=== PATIENT | female | born 2000 | race Caucasian/White ===

== ENCOUNTER 2019-05-09 13:04 | Emergency (ER) | payer BC ==
[~2019-05-09] VITALS: Ht 165.1 cm; Wt 50.3 kg
[2019-05-09 13:16] VITALS: BP 128/87
== END 2019-05-09 14:28 | disposition home or self-care (01) ==
LOC: ER 13:05
DX: S06.0X0A Concussion without loss of consciousness, initial encounter (principal); Z88.0 Allergy status to penicillin; Z88.6 Allergy status to analgesic agent; W22.8XXA Striking against or struck by other objects, initial encounter; Y93.41 Activity, dancing; Y92.89 Other specified places as the place of occurrence of the external cause; Y99.9 Unspecified external cause status
CPT/HCPCS: 99284

== ENCOUNTER 2020-07-24 05:51 | Emergency (ER) | payer BC ==
[~2020-07-24] VITALS: Ht 165.1 cm; Wt 54.5 kg
[2020-07-24] MEDS ORDERED: ondansetron/PF 4mg/2ml inj IV STA (06:00)
[2020-07-24] MEDS ORDERED: normal saline 1000ml 1,000 ML IVB ONE (06:00)
[2020-07-24 06:32] LABS: BASOPHILS % (AUTO) 0.2 % (0-1); EOSINOPHILS % (AUTO) 0 % (0-6); HEMATOCRIT 38.4 % (35.0-45.0); HEMOGLOBIN 12.9 g/dl (12.0-16.0); LYMPHOCYTES # (AUTO) 0.4 X10'3 (1.1-4.8); LYMPHOCYTES % (AUTO) 1.9 % (21-51); MEAN CORPUSCULAR HEMOGLOBIN 29.8 PG (27.0-31.0); MEAN CORPUSCULAR HGB CONC 33.5 g/dL (33.0-36.5); MEAN CORPUSCULAR VOLUME 88.9 FL (78-98); MEAN PLATELET VOLUME 7.8 FL (7.4-10.4); MONOCYTES # (AUTO) 1.4 X10'3 (0-0.9); MONOCYTES % (AUTO) 6.9 % (2-12); NEUTROPHILS # (AUTO) 18.7 X10'3 (1.8-7.7); PLATELET COUNT 355 X10'3 (140-440); RED BLOOD COUNT 4.32 X10'6 (4.20-5.60); RED CELL DISTRIBUTION WIDTH 13.3 % (11.5-14.5); WHITE BLOOD COUNT 20.6 X10'3 (4.5-11.0)
[2020-07-24 06:49] LABS: ALANINE AMINOTRANSFERASE 18 U/L (12-78); ALBUMIN 4.2 G/DL (3.4-5.0); ALBUMIN/GLOBULIN RATIO 1.2 (1.1-1.5); ALKALINE PHOSPHATASE 65 IU/L (46-116); ANION GAP 12 (8-16); ASPARTATE AMINO TRANSFERASE 20 U/L (10-37); BILIRUBIN,TOTAL 0.3 MG/DL (0.1-1.0); BLOOD UREA NITROGEN 13 MG/DL (7-18); BUN/CREATININE RATIO 17.8 (6.6-38.0); CALCIUM 8.5 MG/DL (8.5-10.1); CHLORIDE 104 MMOL/L (99-107); CREATININE 0.73 MG/DL (0.40-0.90); GLUCOSE 134 MG/DL (70-104); LIPASE 69 U/L (73-393); POTASSIUM 3.9 MMOL/L (3.5-5.1); SODIUM 140 MMOL/L (135-145); TOTAL CARBON DIOXIDE 23.6 MMOL/L (24-32); TOTAL PROTEIN 7.7 G/DL (6.4-8.2); eGFR > 90 ML/MIN
[2020-07-24] MEDS ORDERED: pantoprazole 40 MG vial IV ONE (07:00)
[2020-07-24] MEDS: ondansetron/PF 4mg/2ml inj IV ONE ×2 (07:16→08:01)
[2020-07-24 07:33] LABS: URINE HCG NEGATIVE (NEG)
[2020-07-24 07:41] LABS: CLARITY,URINE CLEAR (Clear); COLOR,URINE YELLOW (Yellow); GLUCOSE, URINE NEGATIVE (Neg); KETONES,URINE 15 mg/dl (Neg); LEUKOCYTE ESTERASE ,URINE NEGATIVE (Neg); NITRITES, URINE NEGATIVE (Neg); OCCULT BLOOD,URINE SMALL (Neg); PROTEIN,URINE NEGATIVE (Neg)
[2020-07-24 07:43] LABS: UA COLLECTION TYPE CLN CATCH MIDSTREAM
[2020-07-24 07:55] LABS: MUCUS STRANDS MODERATE /LPF (Neg); SQUAMOUS EPITHELIAL CELL,UR MODERATE /LPF (FEW)
[2020-07-24 07:56] LABS: BACTERIA,URINE 1+ /HPF (Neg); RBC,URINE 0-2 /HPF (0-2); WBC,URINE 0-4 /HPF (0-4)
[2020-07-24] MEDS ORDERED: normal saline 1000ML IV soln IVB ONE (08:15)
[2020-07-24] MEDS ORDERED: proCHLORperazine 10 MG/2 ml inj IV ONE (09:05)
--- NOTE | 2020-07-24 10:02 | NUR ---
started pt on a PO challenge of water.
[2020-07-24 10:43] VITALS: BP 95/51
[2020-07-24] MEDS ORDERED: PANT-47 PO (10:45)
[2020-07-24] MEDS ORDERED: ONDA8TAB13 PO (10:45)
== END 2020-07-24 10:58 | disposition home or self-care (01) ==
LOC: ER 05:53
DX: K29.70 Gastritis, unspecified, without bleeding (principal); R10.31 Right lower quadrant pain; Z72.89 Other problems related to lifestyle; Z88.0 Allergy status to penicillin; Z88.6 Allergy status to analgesic agent; Z79.899 Other long term (current) drug therapy
CPT/HCPCS: 36415; 80053; 81001; 81025; 83690; 85025; 96361; 96374; 96375; 96376; 99285; C9113; J0780; J2405; J7030

== ENCOUNTER 2023-04-15 22:14 | Emergency (ER) | payer BC ==
[~2023-04-15] VITALS: Ht 165.1 cm; Wt 59.1 kg
[~2023-04-15 22:14] MED LIST: ONDA8TAB13 PO; PANT-47 PO
[2023-04-15] MEDS ORDERED: ondansetron 4mg rapidly disintigrating tab PO ONE (23:10)
[2023-04-15 23:48] LABS: HEMATOCRIT 37.3 % (35.0-45.0); HEMOGLOBIN 12.2 g/dl (12.0-16.0)
[2023-04-15 23:50] LABS: BASOPHILS % (AUTO) 0.2 % (0-1); EOSINOPHILS % (AUTO) 0.3 % (0-6); LYMPHOCYTES # (AUTO) 1.6 X10'3 (1.1-4.8); LYMPHOCYTES % (AUTO) 11.2 % (21-51); MEAN CORPUSCULAR HEMOGLOBIN 28.9 PG (27.0-31.0); MEAN CORPUSCULAR HGB CONC 32.7 g/dL (33.0-36.5); MEAN CORPUSCULAR VOLUME 88.4 FL (78-98); MONOCYTES # (AUTO) 1.5 X10'3 (0-0.9); MONOCYTES % (AUTO) 10.2 % (2-12); NEUTROPHILS # (AUTO) 11.3 X10'3 (1.8-7.7); NEUTROPHILS % (AUTO) 78.1 % (42-75); PLATELET COUNT 362 X10'3 (140-440); RED BLOOD COUNT 4.22 X10'6 (4.20-5.60); RED CELL DISTRIBUTION WIDTH 13.4 % (11.5-14.5); WHITE BLOOD COUNT 14.4 X10'3 (4.5-11.0)
[2023-04-15 23:54] LABS: URINE HCG NEGATIVE (NEG)
[2023-04-16 00:02] LABS: ETHANOL < 10 MG/DL (<10); MAGNESIUM 2.1 MG/DL (1.5-2.4); PRO BRAIN NATRIURETIC PEPTIDE 73 PG/ML (0-125)
[2023-04-16 00:14] LABS: BILIRUBIN,URINE NEGATIVE (Neg); CLARITY,URINE CLEAR (Clear); COLOR,URINE YELLOW (Yellow); GLUCOSE, URINE NEGATIVE (Neg); KETONES,URINE NEGATIVE (Neg); LEUKOCYTE ESTERASE ,URINE NEGATIVE (Neg); NITRITES, URINE NEGATIVE (Neg); OCCULT BLOOD,URINE NEGATIVE (Neg); PROTEIN,URINE 30 mg/dl (Neg); UROBILINOGEN,URINE 0.2 E.U/dL (0.2-1.0)
[2023-04-16 00:17] LABS: UA COLLECTION TYPE CLN CATCH MIDSTREAM
[2023-04-16 00:26] LABS: RBC,URINE 0-2 /HPF (0-2); WBC,URINE 0-4 /HPF (0-4)
[2023-04-16 00:27] LABS: BACTERIA,URINE NONE SEEN /HPF (Neg); MUCUS STRANDS NONE SEEN /LPF (Neg); SQUAMOUS EPITHELIAL CELL,UR FEW /LPF (FEW)
[2023-04-16 00:37] LABS: ALBUMIN 4.1 G/DL (3.4-5.0); ANION GAP 9 (8-16); BLOOD UREA NITROGEN 18 MG/DL (7-18); BUN/CREATININE RATIO 20.7 (10.0-20.0); CALCIUM 9.2 MG/DL (8.5-10.1); CHLORIDE 104 MMOL/L (99-107); CREATININE 0.87 MG/DL (0.40-0.90); GLUCOSE 99 MG/DL (70-104); POTASSIUM 3.8 MMOL/L (3.5-5.1); SODIUM 140 MMOL/L (135-145); TOTAL CARBON DIOXIDE 26.9 MMOL/L (24-32); eCRCL 89 ML/MIN; eGFR 79 ML/MIN
[2023-04-16 00:54] VITALS: BP 105/75; PULSE 78; RESP 16; TEMP 98.6; O2SAT 99
[2023-04-16 02:51] LABS: PLATELET ESTIMATE NORMAL
[2023-04-16 03:01] LABS: TOTAL CELLS COUNTED 100
== END 2023-04-16 00:56 | disposition home or self-care (01) ==
LOC: ER 22:15
DX: R55 Syncope and collapse (principal)
CPT/HCPCS: 36415; 71045; 80048; 80320; 81001; 81003; 81025; 83735; 83880; 84484; 85007; 85025; 93005; 99285